=== PATIENT | female | born 1950 | race Caucasian/White ===

== ENCOUNTER 2019-01-11 00:16 | Outpatient (CLI) | payer MEDICARE, BC, SELFPAY ==
--- NOTE | 2019-01-11 09:25 | DI.MAMMO_ITS ---
SYMPTOM/DIAGNOSIS: SCREENING MAMMOGRAMS: Mammograms were interpreted according to the usual protocol including computer analysis with CAD system, tomosynthesis and C view imaging. The breasts are of moderate density with fairly symmetrical distribution of fibroglandular tissue. No dominant mass or clumped microcalcification is identified in either breast. The current examination is compared with previous examinations including 12/2017 and there has been no gross interval change in appearance in comparison with the previous studies. CONCLUSION: No specific evidence of malignancy at this time. Routine screening examinations are suggested at yearly intervals due to the family history of breast carcinoma. Category 1. Breast density, category B. MQSA ASSESSMENT OF FINDINGS: Negative. Category 1. Patient will receive a letter notifying them of these results. BI-RADS category B. There are scattered areas of fibroglandular density.
== END 2019-01-11 00:36 ==
PROVIDERS: PCP Family Medicine; Visit Provider Family Medicine
DX: Z12.31 Encounter for screening mammogram for malignant neoplasm of breast (principal)
CPT/HCPCS: 77063; 77067

== ENCOUNTER 2019-08-10 02:42 | Outpatient (CLI) | payer MEDICARE, BC, SELFPAY ==
[2019-08-10 11:06] LABS: Calculated LDL 166 mg/dL; Cholesterol 255 mg/dL (50-200); HDL Cholesterol 58 mg/dL (40-60); Triglyceride 159 mg/dL (30-150)
== END 2019-08-10 03:02 ==
PROVIDERS: PCP Family Medicine; Visit Provider Family Medicine
DX: E78.5 Hyperlipidemia, unspecified (principal)
CPT/HCPCS: 36415; 80061

== ENCOUNTER 2019-09-16 10:01 | Outpatient (CLI) | payer MEDICARE, BC, SELFPAY ==
[2019-09-16 13:41] LABS: Vitamin B12 > 2000 pg/mL (193-986)
== END 2019-09-16 10:21 ==
PROVIDERS: PCP Family Medicine; Visit Provider Family Medicine
DX: E53.8 Deficiency of other specified B group vitamins (principal)
CPT/HCPCS: 36415; 82607

== ENCOUNTER 2020-02-16 02:08 | Outpatient (CLI) | payer MEDICARE, BC, SELFPAY ==
[2020-02-16 18:27] LABS: Vitamin B12 379 pg/mL (193-986)
== END 2020-02-16 02:28 ==
PROVIDERS: PCP Family Medicine
DX: D51.8 Other vitamin B12 deficiency anemias (principal)
CPT/HCPCS: 36415; 82607

== ENCOUNTER 2020-04-04 00:38 | Outpatient (CLI) | payer MEDICARE, BC, SELFPAY ==
--- NOTE | 2020-04-04 15:00 | DI.MAMMO_ITS ---
EXAM: MG MAMMO SCREENING CLINICAL HISTORY: screening,Z12.39 TECHNIQUE: Mammograms were interpreted according to the usual protocol including computer analysis w [employer] CAD system, tomosynthesis and C-view imaging. COMPARISON: FINDINGS: the breasts are of moderate density with fairly symmetrical distribution fibroglandular tissue. No dominant mass or clumped microcalcification is identified in either breast. The current examination is compared with previous studies including January 2019 and there has been no gross interval change ap pearance. IMPRESSION: No specific evidence of malignancy at this time. Routine screening examinations are suggested at yea rly intervals due to the family history of breast carcinoma. BI-RADS Cat 1 - Negative Breast Density - Category B - Scattered areas of fibroglandular density
== END 2020-04-04 00:58 ==
PROVIDERS: PCP Family Medicine; Visit Provider Family Medicine
DX: Z12.31 Encounter for screening mammogram for malignant neoplasm of breast (principal); Z80.3 Family history of malignant neoplasm of breast
CPT/HCPCS: 77063; 77067

== ENCOUNTER 2020-10-09 03:05 | Outpatient (CLI) | payer MEDICARE, BC, SELFPAY ==
[2020-10-09 09:21] LABS: Calculated LDL 144 mg/dL (<100); Cholesterol 235 mg/dL (<200); HDL Cholesterol 54 mg/dL (40-60); Triglyceride 185 mg/dL (<150); Vitamin B12 654 pg/mL (193-986)
== END 2020-10-09 03:25 ==
PROVIDERS: PCP Family Medicine; Visit Provider Family Medicine
DX: E78.5 Hyperlipidemia, unspecified (principal); E53.8 Deficiency of other specified B group vitamins
CPT/HCPCS: 36415; 80061; 82607

== ENCOUNTER 2021-09-26 01:34 | Outpatient (CLI) | payer MEDICARE, BC, SELFPAY ==
[2021-09-26 11:00] LABS: ALT 24 U/L (14-59); AST 18 U/L (15-37); Albumin 3.8 g/dL (3.4-5.0); Alkaline Phosphatase 60 U/L (46-116); Anion Gap 7.2 mmol/L (3-11); BUN 17 mg/dL (7-18); Bilirubin, Total 0.4 mg/dL (0.2-1.0); CO2 28.8 mmol/L (21.0-32.0); Calculated LDL 172 mg/dL (<100); Chloride 108 mmol/L (98-107); Cholesterol 267 mg/dL (<200); Glucose 86 mg/dL (74-106); HDL Cholesterol 55 mg/dL (40-60); Potassium 4.4 mmol/L (3.5-5.1); Sodium 144 mmol/L (136-145); Total Protein 6.8 g/dL (6.4-8.2); Triglyceride 203 mg/dL (<150)
== END 2021-09-26 01:35 | disposition home or self-care (01) ==
LOC: LBO 01:34
PROVIDERS: PCP Family Medicine; Visit Provider Family Medicine
DX: E78.5 Hyperlipidemia, unspecified (principal)
CPT/HCPCS: 36415; 80053; 80061

== ENCOUNTER 2021-10-29 00:41 | Outpatient (CLI) | payer MEDICARE, BC, SELFPAY ==
--- NOTE | 2021-10-29 06:45 | DI.MAMMO_ITS ---
Exam(s) MAMMO SCREENING EXAM: MAMMO SCREENING CLINICAL HISTORY: screening,z12.39 TECHNIQUE: Mammograms were interpreted according to the usual protocol including computer analysis w [employer] CAD system, tomosynthesis and C-view imaging. COMPARISON: 2011 through 2019 FINDINGS: The breasts are composed of scattered fibroglandular densities, Breast Density category B. No suspicious masses or suspicious microcalcifications are seen. No skin thickening or abnormal axillary lymph nodes are seen. There has been no significant change from prior exams. IMPRESSION: BI-RADS Category 1, Negative mammogram Yearly screening mammography is recommended. Breast Density - Category B, scattered fibroglandular densities. A negative radiographic report should not delay biopsy if a dominant or clinically suspicious mass is present. Up to ten percent of cancers are not identified on mammography. A negative report may reinforce clinical impression. Adenosis and dense breasts may obscure an underlying neoplasm. False positive reports average 6 to 10%. Patient will receive a letter notifying them of these results.
== END 2021-10-29 01:01 ==
PROVIDERS: PCP Family Medicine; Visit Provider Family Medicine
DX: Z12.31 Encounter for screening mammogram for malignant neoplasm of breast (principal)
CPT/HCPCS: 77063; 77067

== ENCOUNTER 2022-03-28 03:56 | Outpatient (CLI) | payer MEDICARE, BC, SELFPAY ==
[2022-03-28 12:33] LABS: Bilirubin Negative (Negative); Blood Negative (Negative); Clarity Clear (Clear); Glucose Negative (Negative); Ketones Negative (Negative); Leukocyte Esterase Negative (Negative); Nitrite Negative (Negative); Specific Gravity >= 1.030 (1.005-1.025); Urobilinogen 0.2 EU/dL (Up TO 0.2); pH 5.5 (5-8)
[2022-03-28 12:40] LABS: Abs Immature Grans 0.01 10^3/uL (0.0-0.06); Absolute Basophil Count 0.03 10^3/uL (0.0-0.2); Absolute Eosinophil Count 0.14 10^3/uL (0.0-0.7); Absolute Lymphocyte Count 1.65 10^3/uL (1.2-3.4); Absolute Monocyte Count 0.29 10^3/uL (0.1-0.8); Absolute Neutrophil Count 1.66 10^3/uL (1.2-6.7); Basophils % 0.8; Eosinophils % 3.7; HCT 43.7 % (36.0-46.0); HGB 13.7 g/dL (11.2-15.7); Immature Grans % 0.3; Lymphocytes % 43.7; MCH 30.7 pg (27.0-33.0); MCHC 31.4 % (32.0-36.0); MCV 98 fL (80-95); MPV 11.4 fL (8.0-11.0); Monocytes % 7.7; Neutrophils % 43.8; Platelet Count 166 10^3/uL (130-400); RBC 4.46 10^6/uL (3.93-5.22); RDW 13.4 % (11.7-14.6); RDW-SD 49.1 fL; WBC 3.78 10^3/uL (4.4-10.8)
[2022-03-28 13:00] LABS: Albumin 3.5 g/dL (3.4-5.0); Alkaline Phosphatase 54 U/L (46-116); BUN 13 mg/dL (7-18); Bilirubin, Total 0.5 mg/dL (0.2-1.0); CREATININE 0.9 mg/dL (0.55-1.02); Glucose 96 mg/dL (74-106); Total Protein 6.8 g/dL (6.4-8.2)
[2022-03-28 13:01] LABS: ALT 22 U/L (14-59); AST 21 U/L (15-37); Anion Gap 7.1 mmol/L (3-11); CO2 25.9 mmol/L (21.0-32.0); Chloride 111 mmol/L (98-107); Lipase 196 U/L (73-393); Potassium 4.3 mmol/L (3.5-5.1); Sodium 144 mmol/L (136-145)
[2022-03-28 13:47] LABS: Vitamin B12 810 pg/mL (193-986)
== END 2022-03-28 03:57 | disposition home or self-care (01) ==
LOC: LOS 03:57
PROVIDERS: PCP Family Medicine; Visit Provider Family Medicine
DX: I10 Essential (primary) hypertension (principal); E53.8 Deficiency of other specified B group vitamins; R82.998 Other abnormal findings in urine
CPT/HCPCS: 36415; 80053; 83690; 81003; 82607; 85025

== ENCOUNTER 2022-06-10 10:03 | Outpatient (CLI) | payer MEDICARE, BC, SELFPAY ==
[2022-06-10 12:16] LABS: Abs Immature Grans 0.01 10^3/uL (0.0-0.06); Absolute Basophil Count 0.04 10^3/uL (0.0-0.2); Absolute Eosinophil Count 0.14 10^3/uL (0.0-0.7); Absolute Lymphocyte Count 1.65 10^3/uL (1.2-3.4); Absolute Monocyte Count 0.44 10^3/uL (0.1-0.8); Absolute Neutrophil Count 3.12 10^3/uL (1.2-6.7); Basophils % 0.7; Eosinophils % 2.6; HCT 41.7 % (36.0-46.0); HGB 13.7 g/dL (11.2-15.7); Immature Grans % 0.2; Lymphocytes % 30.6; MCH 31.4 pg (27.0-33.0); MCHC 32.9 % (32.0-36.0); MCV 95 fL (80-95); MPV 11.8 fL (8.0-11.0); Monocytes % 8.1; Neutrophils % 57.8; Platelet Count 181 10^3/uL (130-400); RBC 4.37 10^6/uL (3.93-5.22); RDW 13.3 % (11.7-14.6); RDW-SD 47.3 fL
[2022-06-10 12:34] LABS: ALT 24 U/L (14-59); AST 24 U/L (15-37); Albumin 3.5 g/dL (3.4-5.0); Alkaline Phosphatase 52 U/L (46-116); Anion Gap 7.2 mmol/L (3-11); BUN 15 mg/dL (7-18); Bilirubin, Total 0.3 mg/dL (0.2-1.0); CO2 28.8 mmol/L (21.0-32.0); CREATININE 0.8 mg/dL (0.55-1.02); Calcium 9.1 mg/dL (8.5-10.1); Chloride 107 mmol/L (98-107); Glucose 95 mg/dL (74-106); Potassium 4.5 mmol/L (3.5-5.1); Sodium 143 mmol/L (136-145)
== END 2022-06-10 10:04 | disposition home or self-care (01) ==
LOC: LOS 10:03
PROVIDERS: PCP Family Medicine; Visit Provider Nurse Practitioner Family
DX: R10.30 Lower abdominal pain, unspecified (principal)
CPT/HCPCS: 36415; 80053; 85025

== ENCOUNTER → 2022-06-19 03:13 | Outpatient (CLI) | payer MEDICARE, BC, SELFPAY ==
--- NOTE | 2022-06-19 08:11 | DI.CT_ITS ---
Exam(s) CT ABDOMEN PELVIS W EXAM: CT ABDOMEN PELVIS W CLINICAL HISTORY: Pain worse RLQ, r/o appendicitis, diverticulitis TECHNIQUE: Imaging Protocol: Axial computed tomography images with coronal and sagittal reformatted images were created and reviewed CONTRAST MATERIAL: Intravenous: Omnipaque 350 Contrast volume:99 mL Oral: Yes COMPARISON: No exams were available for comparison FINDINGS: ABDOMEN: Lung Bases: Normal where visualized. Liver: Normal density. No measurable mass. Portal, Superior Mesenteric, and Splenic Veins: Unremarkable. Gallbladder and Biliary Tract: Gallbladder is contracted but grossly unremarkable. No biliary ductal dilatation is present. Pancreas: Normal density, no abnormal calcifications or inflammatory process. Spleen: Normal. Adrenals: No masses seen. Kidneys: Normal size, contour and axis. No radiodense stones or obstructive uropathy. No masses seen. Abdominal Aorta: Abdominal portion non-dilated. Atherosclerosis is present. Bowel: No obstruction or bowel wall thickening. No evidence of appendicitis. There are few scattered diverticula in the sigmoid colon, but no evidence of acute diverticulitis. Peritoneal Cavity: No ascites, collection or mesenteric inflammatory response. No free air. Lymph Nodes: Within normal limits. Bones: Within normal limits for the patient's age. Soft Tissues: There is a small fat containing umbilical hernia. PELVIS: Bladder: Symmetric distention, no gross wall thickening. Reproductive Organs: Status post hysterectomy. Lymph Nodes: Within normal limits. Bones: Within normal limits for the patient's age. IMPRESSION: No acute abdominal or pelvic process. RADIATION DOSE DELIVERED: 612.98mGy.cm Total DLP DATA REPOSITORY: All CT scans at this facility are submitted to the National Radiology Data Registry (NRDR) Dose Index Registry (DIR) with the [employer] (A[employer]). RADIATION OPTIMIZATION: All CT scans at this facility use at least one of these dose optimization te chniques: automated exposure control; mA and/or kV adjustment per patient size (includes targeted exa ms where dose is matched to clinical indication); or iterative reconstruction.
[2022-06-19] MEDS: Omnipaque 350 MG/ML 100 ML BTL IV (14:47)
== END ==
PROVIDERS: PCP Family Medicine; Visit Provider Nurse Practitioner Family
DX: R10.30 Lower abdominal pain, unspecified (principal)
CPT/HCPCS: 74177; J3490

== ENCOUNTER 2022-11-19 02:38 | Outpatient (CLI) | payer MEDICARE, BC, SELFPAY ==
--- NOTE | 2022-11-19 07:45 | DI.DEXA_ITS ---
Exam(s) XR DEXA BONE DENSITY W/WO JIGNA EXAM: XR DEXA BONE DENSITY W/WO JIGNA CLINICAL HISTORY: f/u osteopenia,SCREENING FOR OSTEOPOROSIS, Z78.0 TECHNIQUE: Routine DEXA evaluation of the lumbar spine, hip, or forearm. COMPARISON: Prior DEXA scan November 2016 FINDINGS: Performed on a HoloIndependent IP unit. Lateral image: No compression fracture evident. Lumbar Spine total T-score: -2.1. Prior 2017 reading was -2.2. Hip total T-score:-2.2. Prior 2017 reading was -2.0. Independent reading at the level of the femoral neck yields T-score of -1.8. Forearm total T-score: -2.4 IMPRESSION: Bone mineral density measures in the osteopenia range. Fracture risk is moderate. Note: Any spine fracture indicates 5x risk for subsequent spine fracture and 2x risk for subsequent h ip fracture. World Health Organization criteria for BMD interpretation classify patients: Normal...... T- Score at or above -1.0 Osteopenic... T- Score between -1.0 and -2.5 Osteoporosis... T-Score at or below -2.5
== END 2022-11-19 02:58 ==
LOC: DI 02:38
PROVIDERS: PCP Family Medicine; Visit Provider Family Medicine
DX: Z78.0 Asymptomatic menopausal state; Z12.31 Encounter for screening mammogram for malignant neoplasm of breast; Z13.820 Encounter for screening for osteoporosis; M85.89 Other specified disorders of bone density and structure, multiple sites
CPT/HCPCS: 77063; 77067; 77080

== ENCOUNTER 2023-11-03 08:50 | Outpatient (CLI) | payer MEDICARE, BC, SELFPAY ==
[2023-11-03 12:38] LABS: Calculated LDL 161 mg/dL (<100); Cholesterol 252 mg/dL (<200); HDL Cholesterol 61 mg/dL (40-60); Triglyceride 153 mg/dL (<150)
[2023-11-03 18:44] LABS: Hepatitis C Ab w Rflx HCV PCR Negative (Negative)
== END 2023-11-03 08:51 | disposition home or self-care (01) ==
LOC: LOS 08:51
PROVIDERS: PCP Family Medicine; Visit Provider Family Medicine
DX: E78.2 Mixed hyperlipidemia (principal); Z11.59 Encounter for screening for other viral diseases
CPT/HCPCS: 36415; 80061; 86803

== ENCOUNTER → 2023-11-20 01:32 | Outpatient (CLI) | payer MEDICARE, BC, SELFPAY ==
--- NOTE | 2023-11-20 14:41 | DI.MAMMO_ITS ---
Exam(s) MAMMO SCREENING EXAM: MAMMO SCREENING CLINICAL HISTORY: screening,Z12.39 TECHNIQUE: Mammograms were interpreted according to the usual protocol including computer analysis w [employer] CAD system, tomosynthesis and C-view imaging. COMPARISON: 2013 through 2022 FINDINGS: The breasts are composed of scattered fibroglandular densities, Breast Density category B. No suspicious masses or suspicious microcalcifications are seen. No skin thickening or abnormal axillary lymph nodes are seen. There has been no significant change from prior exams. IMPRESSION: BI-RADS Category 1, Negative mammogram Yearly screening mammography is recommended. Breast Density - Category B, scattered fibroglandular densities. A negative radiographic report should not delay biopsy if a dominant or clinically suspicious mass is present. Up to ten percent of cancers are not identified on mammography. A negative report may reinforce clinical impression. Adenosis and dense breasts may obscure an underlying neoplasm. False positive reports average 6 to 10%. Patient will receive a letter notifying them of these results.
== END ==
PROVIDERS: PCP Family Medicine; Visit Provider Internal Medicine
DX: Z12.31 Encounter for screening mammogram for malignant neoplasm of breast (principal); R92.323 Mammographic fibroglandular density, bilateral breasts
CPT/HCPCS: 77063; 77067

== ENCOUNTER 2024-12-07 02:36 | Outpatient (CLI) | payer MEDICARE, BC, SELFPAY ==
[2024-12-07 12:44] LABS: Absolute Basophil Count 0.04 10^3/uL (0.0-0.2); Absolute Eosinophil Count 0.15 10^3/uL (0.0-0.7); Absolute Lymphocyte Count 1.77 10^3/uL (1.2-3.4); Absolute Monocyte Count 0.25 10^3/uL (0.1-0.8); Absolute Neutrophil Count 1.82 10^3/uL (1.2-6.7); Eosinophils % 3.7 %; HCT 41.5 % (36.0-46.0); HGB 13.1 g/dL (11.2-15.7); Lymphocytes % 43.9 %; MCH 31.2 pg (27.0-33.0); MCHC 31.6 % (32.0-36.0); MCV 99 fL (80-95); MPV 11.5 fL (8.0-11.0); Monocytes % 6.2 %; Neutrophils % 45.2 %; Platelet Count 167 10^3/uL (130-400); RDW 13.3 % (11.7-14.6); RDW-SD 48.4 fL; WBC 4.03 10^3/uL (4.4-10.8)
[2024-12-07 13:20] LABS: ALT 20 U/L (14-59); AST 20 U/L (15-37); Albumin 3.5 g/dL (3.4-5.0); Alkaline Phosphatase 62 U/L (46-116); Anion Gap 5.8 mmol/L (3-11); BUN 15 mg/dL (7-18); Bilirubin, Total 0.47 mg/dL (0.2-1.0); CO2 28.2 mmol/L (21.0-32.0); CREATININE 0.9 mg/dL (0.55-1.02); Calcium 9.2 mg/dL (8.5-10.1); Calculated LDL 142 mg/dL (<100); Chloride 111 mmol/L (98-107); Cholesterol 232 mg/dL (<200); Estimated GFR 66.67 (mL/min/1.73m2); Glucose 86 mg/dL (74-106); HDL Cholesterol 65 mg/dL (40-60); Potassium 4.4 mmol/L (3.5-5.1); Sodium 145 mmol/L (136-145); Total Protein 6.6 g/dL (6.4-8.2); Triglyceride 128 mg/dL (<150); Vitamin B12 996 pg/mL (193-986)
== END 2024-12-07 02:37 | disposition home or self-care (01) ==
LOC: LOS 02:37
PROVIDERS: PCP Family Medicine; Visit Provider Family Medicine
DX: Z13.6 Encounter for screening for cardiovascular disorders (principal); E78.2 Mixed hyperlipidemia; Z00.00 Encounter for general adult medical examination without abnormal findings; E53.8 Deficiency of other specified B group vitamins
CPT/HCPCS: 36415; 80053; 80061; 82607; 85025

== ENCOUNTER 2024-12-15 02:28 | Outpatient (CLI) | payer MEDICARE, BC, SELFPAY | END 2024-12-15 02:48 | LOC: DI 02:28 | PROVIDERS: PCP Family Medicine; Visit Provider Family Medicine | DX: Z12.31 Encounter for screening mammogram for malignant neoplasm of breast (principal); E78.2 Mixed hyperlipidemia; R92.323 Mammographic fibroglandular density, bilateral breasts | CPT/HCPCS: 77063; 77067 ==

== ENCOUNTER 2025-02-15 11:10 | Outpatient (CLI) | payer MEDICARE, BC, SELFPAY ==
--- NOTE | 2025-02-15 10:45 | DI.RAD_ITS ---
Exam(s) XR SHOULDER RT COMPLETE 2+V EXAM: XR SHOULDER RT COMPLETE 2+V CLINICAL HISTORY: shoulder pain. TECHNIQUE: 2D digital imaging was performed. COMPARISON: No exams were available for comparison FINDINGS: Two views No evidence of fracture or dislocation or abnormal soft tissue calcifications. Subacromial space is not diminished. Mild degenerative changes in the AC joint. Coracoid process unremarkable. No signi ficant osseous lesions evident. IMPRESSION: No significant findings in the right shoulder joint. DATA REPOSITORY: RADIATION DOSE DELIVERED:
== END 2025-02-15 11:11 | disposition home or self-care (01) ==
LOC: DIORS 11:11
PROVIDERS: PCP Family Medicine; Referring Provider Physical Therapist; Visit Provider Student in an Organized Health Care Education/Training Program
DX: M75.101 Unspecified rotator cuff tear or rupture of right shoulder, not specified as traumatic
CPT/HCPCS: 99204; 73030

== ENCOUNTER 2025-03-11 00:29 | Outpatient (CLI) | payer MEDICARE, BC, SELFPAY ==
--- NOTE | 2025-03-11 06:15 | DI.MRI_ITS ---
Exam(s) MR UPPER JOINT RT WO EXAM: MR UPPER JOINT RT WO CLINICAL HISTORY: R SHOULDER PAIN,rt rotator cuff tear,m75.101 TECHNIQUE: Multiplanar multisequence MRI of the shoulder was performed. COMPARISON: CR XR SHOULDER RT COMPLETE 2+V from 02/15/2025 FINDINGS: MARROW:There is no evidence of fracture, Hill-Sachs deformity, nor ominous osseous lesions. There are multiple tiny degenerative subarticular cysts on the posterolateral aspect of the humeral head. No surrounding bone edema. GLENOHUMERAL JOINT: No significant joint effusion or loose intra-articular bodies. Small osteophyte on the inferior articular surface of the humeral head. There appears to be a fastener channel in the superior half of the anterior osseous glenoid, probably related to prior labral repair ROTATOR CUFF MECHANISM: AC JOINT/ACROMIUM: There are only mild degenerative changes in the AC joint.. There is no evidence of os acromiale. Supraspinatus: Mild tendinitis signal. There is a very thin fluid intensity the oblique line seen in the supraspinatus tendon 1.2 cm above the greater tuberosity. This is either a partial thickness te ar or an extremely thin full thickness tear. There does not appear to be fluid in the subacromial-victor bdeltoid bursa. No muscle atrophy. Infraspinatus: Intact. No evidence of tear nor muscle atrophy. Teres Minor: Intact. No evidence of tear nor muscle atrophy. Subscapularis/anterior cuff: Mild insertional tendinitis. No tear. No atrophy. BICEPS TENDON: Exhibits normal position within the intertubercular groove. No tenosynovitis at this l evel. No obvious tear at the intra-articular aspect LABRUM: No obvious tear of the superior labrum. There is attenuation tearing in the posterior labrum . There also appears to be some tearing in the anterosuperior labrum. There does not appear to be a vulsion of the anterior inferior labrum nor disruption of the scapular periosteum at this level to victor ggest the presence of a Bankart lesion. Inferior labrum appears intact as does the inferior glenohum eral ligament. QUADRILATERAL SPACE: No evidence of mass in the region of the axillary nerve and dorsal circumflex hu meral vessels. Visualized triceps muscle at this level appears unremarkable. IMPRESSION: 1. There is thin partial-thickness tearing of the supraspinatus tendon. There is no fluid in the sub acromial-subdeltoid bursa. 2. Mild insertional tendinitis seen in the anterior cuff-subscapularis. 3. There appears to be a fastener channel in the anterior superior osseous glenoid which is probably from prior labral repair. There does appear to be some labral tearing at this level and there also a ppears to be some posterior labral tearing. There is no obvious tear nor displacement of the long he ad biceps tendon. 4. Mild degenerative changes in the glenohumeral joint. No joint effusion or loose intra-articular bodies evident. Multiple tiny confluent degenerative subarticular cysts are noted in the posterior l ateral aspect of the humeral head. DATA REPOSITORY:
== END 2025-03-11 00:49 ==
LOC: DI 00:29
PROVIDERS: PCP Family Medicine; Visit Provider Student in an Organized Health Care Education/Training Program
DX: M75.111 Incomplete rotator cuff tear or rupture of right shoulder, not specified as traumatic (principal)
CPT/HCPCS: 73221

== ENCOUNTER → 2025-03-16 08:12 | Outpatient (BNVA) | payer MEDICARE, BC, SELFPAY | PROVIDERS: PCP Family Medicine; Referring Provider Family Medicine; Visit Provider Student in an Organized Health Care Education/Training Program | DX: M25.811 Other specified joint disorders, right shoulder (principal) | CPT/HCPCS: 99213 ==